=== PATIENT | male | born 1990 ===

== ENCOUNTER 2016-12-20 10:58 | Emergency (ER) | payer SELFPAY | END 2016-12-20 11:15 | disposition left against medical advice (07) | LOC: UCCORT 10:58 | DX: Z53.21 Procedure and treatment not carried out due to patient leaving prior to being seen by health care provider (principal) ==

== ENCOUNTER 2017-08-18 19:56 | Emergency (ER) | payer OTHER ==
--- NOTE | 2017-08-18 20:09 | UC ---
Skin Complaint HPI - HPI Summary HPI Summary: 26 YEAR OLD MALE PRESENTS LEFT CALF INSECT BITE. - History of Current Complaint Chief Complaint: UCSkin Time Seen by Provider: 08/18/17 20:06 Stated Complaint: SKIN COMPLAINT Hx Obtained From: Patient Onset/Duration: Sudden Onset Onset Severity: Moderate Current Severity: Moderate Pain Scale Used: 0-10 Numeric - 0 Location: Discrete Aggravating Factor(s): Nothing Alleviating Factor(s): Nothing Associated Signs & Symptoms: Positive: Negative - Allergy/Home Medications Allergies/Adverse Reactions: Allergies Allergy/AdvReac Type Severity Reaction Status Date / Time No Known Allergies Allergy Verified 08/18/17 20:01 Review of Systems Constitutional: Negative Skin: Negative Eyes: Negative ENT: Negative Respiratory: Negative Cardiovascular: Negative Gastrointestinal: Negative Genitourinary: Negative Motor: Negative Neurovascular: Negative Musculoskeletal: Negative Neurological: Negative Psychological: Negative All Other Systems Reviewed And Are Negative: Yes PMH/Surg Hx/FS Hx/Imm Hx Previously Healthy: Yes - Surgical History Surgical History: None - Family History Known Family History: Positive: Hypertension, Diabetes - Social History Alcohol Use: None Substance Use Type: None Smoking Status (MU): Former Smoker - Immunization History Most Recent Influenza Vaccination: none Physical Exam Triage Information Reviewed: Yes Vital Signs: Initial Vital Signs Temp 37.1 C 08/18/17 20:02 Pulse 70 08/18/17 20:02 Resp 16 08/18/17 20:02 BP 130/71 08/18/17 20:02 Pulse Ox 98 08/18/17 20:02 Vital Signs Reviewed: Yes Eye Exam: Normal ENT Exam: Normal Dental Exam: Normal Neck exam: Normal Neck: Positive: 1 Respiratory Exam: Normal Cardiovascular Exam: Normal Abdominal Exam: Normal Musculoskeletal Exam: Normal Neurological Exam: Normal Psychological Exam: Normal Skin: Positive: rashes Course/Dx - Diagnoses Provider Diagnoses: INSECT BITE ON BOTH ANKLES Discharge - Discharge Plan Condition: Stable Disposition: HOME Prescriptions: Cephalexin CAP* [Keflex 500 CAP*] 500 mg PO TID #30 cap Clotrimazole/Betamethasone* [Lotrisone Cream*] 1 applic TOPICAL BID PRN #90 gm PRN Reason: Itching Mupirocin 2% OINT* [Bactroban 2 % Oint*] 1 applic TOPICAL BID #2 tube Patient Education Materials: Insect Bite or Sting (ED), Jock Itch (ED) Forms: *Work Release Referrals: No Primary Care Phys,NOPCP [Primary Care Provider] -
[2017-08-18] MEDS ORDERED: Cephalexin CAP* 500 MG PO ONE (20:10)
[2017-08-18 20:46] VITALS: BP 130/71
--- NOTE | 2017-08-22 07:26 | UC ---
Progress - Progress Note Progress Note: WOUND CX (-). CAN STOP ABX.
== END 2017-08-18 20:39 | disposition home or self-care (01) ==
LOC: UCCORT 19:56
DX: S91.052A Open bite, left ankle, initial encounter (principal); W57.XXXA Bitten or stung by nonvenomous insect and other nonvenomous arthropods, initial encounter; Z87.891 Personal history of nicotine dependence
CPT/HCPCS: 87070; 87077; 87205; 99212; A9270-GY; G0463

== ENCOUNTER 2017-09-18 12:25 | Emergency (ER) | payer OTHER ==
[2017-09-18 12:40] VITALS: BP 122/66
[2017-09-18] MEDS ORDERED: Ketorolac INJ* 60 MG/2 ML VIAL IM ONE (12:55)
--- NOTE | 2017-09-18 13:17 | RAD ---
INDICATION: Back pain COMPARISON: None TECHNIQUE: Routine PA, lateral, and oblique imaging was performed . FINDINGS: Bones: There are no acute bony findings. There are no significant osteoarthritic findings. Alignment: Normal Disc spaces: The disc spaces are well-maintained Soft tissues: There are no soft tissue abnormalities. IMPRESSION: NEGATIVE EXAMINATION.
--- NOTE | 2017-09-18 13:39 | UC ---
Back Pain HPI - HPI Summary HPI Summary: AT 7AM WAS PUSHING CART WITH LUMBER IN IT, FELT PAIN IN LEFT SIDE OF LOWER BACK. HISTORY OF SIMILAR BACK INJURY 3 MONTHS AGO, RESOLVED ON ITS OWN. NO LOSS OF CONTROL OF BLADDER OR BOWELS. NO NUMBNESS OR TINGLING IN LEGS. NO ABDOMINAL PAIN. NO FEVER. - History of Current Complaint Chief Complaint: UCBackPain Stated Complaint: BACK PAIN Time Seen by Provider: 09/18/17 12:40 Hx Obtained From: Patient Onset/Duration: Sudden Onset, Lasting Hours Severity Initially: Moderate Severity Currently: Moderate Back Pain: Is Discrete @ - LEFT LOWER BACK Character: Aching, Spasmodic Aggravating Factor(s): Movement, Bending Alleviating Factor(s): Rest, Position Associated Signs And Symptoms: Negative: Numbness, Tingling, Abdominal Pain, Flank Pain, Bladder Incontinence, Bowel Incontinence, Weight Loss, Pain with Weight Bearing Related History: Similar Episode Dx As - 3 MONTHS AGO, Occupational Injury - Risk Factors AAA Risk Factors: Negative TAD Risk Factors: Negative Cauda Equina Risk Factors: Negative Epidural Abscess Risk Factors: Negative - Allergies/Home Medications Allergies/Adverse Reactions: Allergies Allergy/AdvReac Type Severity Reaction Status Date / Time No Known Allergies Allergy Verified 09/18/17 12:34 Home Medications: Home Medications Acetaminophen [Tylenol] 4 tab PO ONCE PRN 09/18/17 [History Confirmed 09/18/17] PMH/Surg Hx/FS Hx/Imm Hx Previously Healthy: Yes - Surgical History Surgical History: None - Family History Known Family History: Positive: Hypertension, Diabetes Negative: Renal Disease - Social History Occupation: Employed Full-time Lives: With Family Alcohol Use: Occasionally Substance Use Type: None Smoking Status (MU): Former Smoker Have You Smoked in the Last Year: Yes When Did the Patient Quit Smoking/Using Tobacco: few weeks ago - Immunization History Most Recent Influenza Vaccination: none Review of Systems Constitutional: Negative Skin: Negative Eyes: Negative ENT: Negative Respiratory: Negative Cardiovascular: Negative Gastrointestinal: Negative Genitourinary: Negative Motor: Negative Neurovascular: Negative Musculoskeletal: Arthralgia, Myalgia Neurological: Negative Psychological: Negative Is Patient Immunocompromised?: No All Other Systems Reviewed And Are Negative: Yes Physical Exam Triage Information Reviewed: Yes Appearance: Well-Appearing, No Pain Distress, Well-Nourished Vital Signs: Initial Vital Signs Temp 98.6 F 09/18/17 12:36 Pulse 65 09/18/17 12:36 Resp 18 09/18/17 12:36 BP 122/66 09/18/17 12:36 Vital Signs Reviewed: Yes Eye Exam: Normal ENT Exam: Normal Dental Exam: Normal Neck exam: Normal Neck: Positive: Supple, Nontender, No Lymphadenopathy Respiratory Exam: Normal Respiratory: Positive: Chest non-tender, Lungs clear, Normal breath sounds, No respiratory distress, No accessory muscle use Cardiovascular Exam: Normal Cardiovascular: Positive: RRR, No Murmur, Pulses Normal Abdominal Exam: Normal Abdomen Description: Positive: Nontender, No Organomegaly, Soft. Negative: CVA Tenderness (R), CVA Tenderness (L) Musculoskeletal: Positive: Strength Intact, ROM Intact, No Edema, Other: - PALPABLE SPASMS LEFT LOWER BACK PARASPINAL MUSCLES Neurological Exam: Normal Psychological Exam: Normal Skin Exam: Normal Back Pain Course/Dx - Differential Dx/Diagnosis Differential Diagnosis/HQI/PQRI: Strain, Sprain Provider Diagnoses: ACUTE LOW BACK STRAIN Discharge - Discharge Plan Condition: Stable Disposition: HOME Prescriptions: Cyclobenzaprine TAB* [Flexeril 10 MG TAB*] 10 mg PO TID PRN #15 tab PRN Reason: Spasms Ketorolac TAB * [Toradol TAB *] 10 mg PO Q8HR PRN #12 tab PRN Reason: Pain Patient Education Materials: Acute Low Back Pain (ED), Muscle Spasm (ED) Forms: *Work Release Referrals: [facility] [Outside] No Primary Care Phys,NOPCP [Primary Care Provider] - Additional Instructions: PHYSICAL THERAPY REFERRAL: You have been prescribed physical therapy. Treatments may include stretching, exercise, application of heat or cold, and other modalities. After an injury, PT can reduce swelling and pain. In recovery, PT is used to restore mobility and strength. Your specific treatment goals are: Reduction of Swelling (EGS, US, ice as needed) ___X__ Pain Reduction (EGS, US, ice as needed) ___X__ TENS Pack Fitting and Instruction Wound Hydrotherapy __X___ Preservation of Mobility __X___ Denominational of Mobility __X___ Strength Denominational ___X__ Work or Sports Hardening This instruction sheet also serves as your PHYSICAL THERAPY REFERRAL! Please take it with you to the therapist, so he/she will be aware of your diagnosis and treatment plan. You may see the physical therapist of your choice for these treatments, but may wish to check with your insurance to be sure the provider you select is covered. It's important to see the doctor to whom you have been referred for follow up.
== END 2017-09-18 13:49 | disposition home or self-care (01) ==
LOC: UCCORT 12:25
DX: S39.012A Strain of muscle, fascia and tendon of lower back, initial encounter (principal); X50.9XXA Other and unspecified overexertion or strenuous movements or postures, initial encounter; Y92.9 Unspecified place or not applicable; Z87.891 Personal history of nicotine dependence
CPT/HCPCS: 72100; 96372; 99212; G0463; J1885

== ENCOUNTER 2018-09-28 12:16 | Emergency (ER) | payer OTHER ==
--- OUTSIDE RECORDS SUMMARY | 2018-09-28 12:20 | XMS REPORT | Continuity of Care Document ---
:1990 External Reference #:[id number] Author Name Adan Combs, OD Address [address] [place] [address] Care Team Providers Name Role Phone Adan Combs OD Care Team Information Health Screener Unavailable Payers Type Date Identification Numbers Payment Provider Subscriber Onset: 2018 Policy Number: [id number] [employer] Group Number: [id number] 3 Dave THOMPSON PayID: [id number] [place] [address] Advance Directives Description No Information Available Problems Description No Information Family History Date Family Member(s) Problem(s) Comments Father No Current Problems Mother No Current Problems Social History Type Date Description Comments Sex Unknown ETOH Use Occasionally consumes alcohol Tobacco Use Start: Unknown Light tobacco smoker (10 or fewer cigarettes/day) Smoking Status Reviewed: 09/03/18 Light tobacco smoker (10 or fewer cigarettes/day) Allergies, Adverse Reactions, Alerts Description No Known Drug Allergies Medications Medication Date Status Form Strength Qnty SIG Indications Ordering Provider Artificial 09/03/ Active Solution 1.4% 15ml one drop Adan Tears 2018 qid OS Combs, OD Prednisolone 08/25/ Active Suspension 1% 5ml 1 drop Adan Acetate 2018 tid OS x Combs, OD 1 week Malcolm 128 08/25/ Active Ointment 5% 3.500g 1/4 inch Adan 2018 m ribbon Combs, OD onto ocular surface nightly left eye No Active Hx Unknown Medications 2018 - 2017 Immunizations Description No Information Available Vital Signs Description No Information Available Results Description No Information Available Procedures Date Code Description Status 08/29/2018 60199 Fitting Of Contact Lens For Treatment Of Ocular Surface Completed Disease 08/20/2018 20717 Remove Foreign Body Conjunctiva Superficial Completed 08/19/2018 86433 Eye Exam New Intermediate Completed 08/19/2018 78331 Remove Foreign Body Conjunctiva Superficial Completed Encounters Type Date Location Provider Dx Diagnosis Office Visit 09/03/2018 Main Office Adan Combs, OD S05.02xD Inj conjunctiva and 3:30p corneal abrasion w/o fb, left eye, subs Office Visit 09/01/2018 Main Office Adan Combs, OD S05.02xD Inj conjunctiva and 3:15p corneal abrasion w/o fb, left eye, subs Office Visit 08/29/2018 Main Office Adan Combs, OD S05.02xD Inj conjunctiva and 11:30a corneal abrasion w/o fb, left eye, subs Office Visit 08/27/2018 Main Office Adan Combs, OD S05.8x2D Other injuries of 11:15a left eye and orbit, subsequent encounter Office Visit 08/25/2018 Main Office Adan Garret, OD S05.8x2D Other injuries of 11:30a left eye and orbit, subsequent encounter Office Visit 08/20/2018 Main Office Adan Combs, OD T15.12xD Foreign body in 8:00a conjunctival sac, left eye, subs encntr S05.8x2D Other injuries of left eye and orbit, subsequent encounter Plan of Treatment Future Appointment(s):09/11/2018 3:15 pm - Adan Combs, OD at Main [id number] - Adan Combs, ODS05.02xD Injury of conjunctiva and corneal abrasion without foreign body, left eye, subsequent encounterFollow up:1 week f/u, sooner PRN
--- OUTSIDE RECORDS SUMMARY | 2018-09-28 12:20 | XMS REPORT | Continuity of Care Document ---
:1990 External Reference #:[id number] Author Name Adan Combs, OD Address [address] [place] [address] Care Team Providers Name Role Phone Adan Combs OD Care Team Information Field Hand Unavailable Payers Type Date Identification Numbers Payment Provider Subscriber Onset: 2018 Policy Number: [id number] [employer] Group Number: [id number] 3 Dave THOMPSON PayID: [id number] [place] [address] Advance Directives Description No Information Available Problems Description No Information Family History Date Family Member(s) Problem(s) Comments Father No Current Problems Mother No Current Problems Social History Type Date Description Comments Sex Unknown ETOH Use Occasionally consumes alcohol Tobacco Use Start: Unknown Light tobacco smoker (10 or fewer cigarettes/day) Smoking Status Reviewed: 09/22/18 Light tobacco smoker (10 or fewer cigarettes/day) Allergies, Adverse Reactions, Alerts Description No Known Drug Allergies Medications Medication Date Status Form Strength Qnty SIG Indications Ordering Provider Artificial 09/03/ Active Solution 1.4% 15ml one drop Adan Tears 2018 qid OS Combs, OD Prednisolone 08/25/ Hx Suspension 1% 5ml 1 drop Adan Acetate 2018 - tid OS x Combs, OD week 2018 Malcolm 128 08/25/ Hx Ointment 5% 3.500g 1/4 inch Adan 2018 - m ribbon Combs, OD 2018 ocular surface nightly left eye No Active 08/19/ Unknown Medications 2018 - 2017 Immunizations Description No Information Available Vital Signs Description No Information Available Results Description No Information Available Procedures Date Code Description Status 09/18/2018 95459 Fitting Of Contact Lens For Treatment Of Ocular Surface Completed Disease 08/29/2018 02268 Fitting Of Contact Lens For Treatment Of Ocular Surface Completed Disease 08/20/2018 10411 Remove Foreign Body Conjunctiva Superficial Completed 08/19/2018 63725 Eye Exam New Intermediate Completed 08/19/2018 37910 Remove Foreign Body Conjunctiva Superficial Completed Encounters Type Date Location Provider Dx Diagnosis Office Visit 09/22/2018 Main Office Adan Combs, OD H16.142 Punctate keratitis, 3:30p left eye Office Visit 09/18/2018 Main Office Adan Combs, OD H16.142 Punctate keratitis, 9:15a left eye Office Visit 09/03/2018 Main Office Adna Combs, OD S05.02xD Inj conjunctiva and 3:30p [...] encounter Office Visit 08/25/2018 Main Office Adan Combs, OD S05.8x2D Other injuries of 11:30a left eye and orbit, subsequent encounter Office Visit 08/20/2018 Main Office Adan Combs, OD T15.12xD Foreign body in 8:00a conjunctival sac, left eye, subs encntr S05.8x2D Other injuries of left eye and orbit, subsequent encounter Plan of Treatment Future Appointment(s):09/28/2018 11:15 am - Adan Combs, OD at Main [id number] - Adna Combs, ODH16.142 Punctate keratitis, left eyeFollow up:3-4 days f/u
--- OUTSIDE RECORDS SUMMARY | 2018-09-28 12:20 | XMS REPORT | Continuity of Care Document ---
:1990 External Reference #:[id number] Author Name Adan Combs, OD Address [address] [place] [address] Care Team Providers Name Role Phone Adan Combs OD Care Team Information Inspector Machined Parts Unavailable Payers Type Date Identification Numbers Payment Provider Subscriber Onset: 2018 Policy Number: [id number] [employer]an [employer] Group Number: [id number] 3 Dave THOMPSON PayID: [id number] [place] [address] Advance Directives Description No Information Available Problems Description No Information Family History Date Family Member(s) Problem(s) Comments Father No Current Problems Mother No Current Problems Social History Type Date Description Comments Sex Unknown ETOH Use Occasionally consumes alcohol Tobacco Use Start: Unknown Light tobacco smoker (10 or fewer cigarettes/day) Smoking Status Reviewed: 09/11/18 Light tobacco smoker (10 or fewer cigarettes/day) [...] Available Procedures Date Code Description Status 08/29/2018 46639 Fitting Of Contact Lens For Treatment Of Ocular Surface Completed Disease 08/20/2018 82751 Remove Foreign Body Conjunctiva Superficial Completed 08/19/2018 84967 Eye Exam New Intermediate Completed 08/19/2018 23100 Remove Foreign Body Conjunctiva Superficial Completed Encounters [...] and orbit, subsequent encounter Plan of Treatment No Information Available
--- OUTSIDE RECORDS SUMMARY | 2018-09-28 12:20 | XMS REPORT | Continuity of Care Document ---
:1990 External Reference #:[id number] Author Name Adan Combs, OD Address [address] [place] [address] Care Team Providers Name Role Phone Adan Combs OD Care Team Information Powerhouse Tender Unavailable Payers Type Date Identification Numbers Payment Provider Subscriber Onset: 2018 Policy Number: [id number] [employer] Roldan [employer] Group Number: [id number] 3 Dave THOMPSON PayID: [id number] [place] [address] Advance Directives Description No Information Available Problems Description No Information Family History Date Family Member(s) Problem(s) Comments Father No Current Problems Mother No Current Problems Social History Type Date Description Comments Sex Unknown ETOH Use Occasionally consumes alcohol Tobacco Use Start: Unknown Light tobacco smoker (10 or fewer cigarettes/day) Smoking Status Reviewed: 09/18/18 Light tobacco smoker (10 or fewer cigarettes/day) Allergies, Adverse Reactions, Alerts Description No Known Drug Allergies Medications Medication Date Status Form Strength Qnty SIG Indications Ordering Provider Artificial 09/03/ Active Solution 1.4% 15ml one drop Adan Tears 2018 qid OS Ocmbs, OD Malcolm 128 08/25/ Active Ointment 5% 3.500g 1/4 inch Adan 2018 m ribbon Combs, OD onto ocular surface nightly left eye Prednisolone 08/25/ Hx Suspension 1% 5ml 1 drop Adan Acetate 2018 - tid OS x Combs, OD week 2018 No Active Hx Unknown Medications 2018 - 2017 Immunizations Description No Information Available Vital Signs Description No Information Available Results Description No Information Available Procedures Date Code Description Status 09/18/2018 54332 Fitting Of Contact Lens For Treatment Of Ocular Surface Completed Disease 08/29/2018 39683 Fitting Of Contact Lens For Treatment Of Ocular Surface Completed Disease 08/20/2018 68262 Remove Foreign Body Conjunctiva Superficial Completed 08/19/2018 03862 Eye Exam New Intermediate Completed 08/19/2018 35952 Remove Foreign Body Conjunctiva Superficial Completed Encounters Type Date Location Provider Dx Diagnosis Office Visit 09/18/2018 Main Office Adan Combs, OD H16.142 Punctate keratitis, 9:15a left eye Office Visit 09/03/2018 Main Office Adan Combs, [...] orbit, subsequent encounter Plan of Treatment Future Appointment(s):09/22/2018 3:30 pm - Adan Combs, OD at Main [id number]/2017 - Adan Combs, ODH16.142 Punctate keratitis, left eyeFollow up:few days f/u
--- OUTSIDE RECORDS SUMMARY | 2018-09-28 12:21 | XMS REPORT | Continuity of Care Document ---
:1990 External Reference #:[id number] Author Name Adan Combs, OD Address [address] [place] [address] Care Team Providers Name Role Phone Adan Combs, SABINE Care Team Information Skein Winder Unavailable Payers Type Date Identification Numbers Payment Provider Subscriber Onset: 2018 Policy Number: [id number] [employer]an [employer] Group Number: [id number] 3 Dave THOMPSON PayID: [id number] [place] [address] Advance Directives Description No Information Available Problems Description No Information Family History Date Family Member(s) Problem(s) Comments Father No Current Problems Mother No Current Problems Social History Type Date Description Comments Sex Unknown ETOH Use Occasionally consumes alcohol Tobacco Use Start: Unknown Light tobacco smoker (10 or fewer cigarettes/day) Smoking Status Reviewed: 09/01/18 Light tobacco smoker (10 or fewer cigarettes/day) Allergies, Adverse Reactions, Alerts Description No Known Drug Allergies Medications Medication Date Status Form Strength Qnty SIG Indications Ordering Provider Prednisolone 08/25/ Active Suspension 1% 5ml 1 drop Adan Acetate 2018 tid OS x Combs, OD 1 week Malcolm 128 08/25/ Active Ointment 5% 3.500g 1/4 inch Adan 2018 m ribbon Garret, OD onto ocular surface nightly left eye No Active 08/19/ Hx Unknown Medications 2018 - 2017 Immunizations Description No Information Available Vital Signs Description No Information Available Results Description No Information Available Procedures Date Code Description Status 08/29/2018 36699 Fitting Of Contact Lens For Treatment Of Ocular Surface Completed Disease 08/20/2018 02621 Remove Foreign Body Conjunctiva Superficial Completed 08/19/2018 46302 Eye Exam New Intermediate Completed 08/19/2018 62217 Remove Foreign Body Conjunctiva Superficial Completed Encounters Type Date Location Provider Dx Diagnosis Office Visit 08/29/2018 Main Office Adan Combs, [...] orbit, subsequent encounter Plan of Treatment Future Appointment(s):09/03/2018 3:30 pm - Adan Combs, OD at Main Office
--- OUTSIDE RECORDS SUMMARY | 2018-09-28 12:21 | XMS REPORT | Continuity of Care Document ---
:1990 External Reference #:[id number] Author Name Simin Summers Care Team Providers Name Role Phone Adan Combs OD Care Team Information Dietary Aide Cook Unavailable Payers Type Date Identification Numbers Payment Provider Subscriber Onset: 2018 Policy Number: [id number] [employer] Group Number: [id number] [address]erie [address] DR PayID: [id number] [place] [id number] Advance Directives Description No Information Available Problems Description No Information Family History Date Family Member(s) Problem(s) Comments Father No Current Problems Mother No Current Problems Social History Type Date Description Comments Sex Unknown ETOH Use Occasionally consumes alcohol Tobacco Use Start: Unknown Light tobacco smoker (10 or fewer cigarettes/day) Smoking Status Reviewed: 08/29/18 Light tobacco smoker (10 or fewer cigarettes/day) [...] Available Procedures Date Code Description Status 08/29/2018 04470 Fitting Of Contact Lens For Treatment Of Ocular Surface Completed Disease 08/20/2018 24887 Remove Foreign Body Conjunctiva Superficial Completed 08/19/2018 36733 Eye Exam New Intermediate Completed 08/19/2018 61209 Remove Foreign Body Conjunctiva Superficial Completed Encounters [...] orbit, subsequent encounter Plan of Treatment Future Appointment(s):09/01/2018 3:15 pm - Adan Combs, OD at Main [id number] - Adan Combs, ODS05.02xD Injury of conjunctiva and corneal abrasion without foreign bFollow up:2 days f/u
--- OUTSIDE RECORDS SUMMARY | 2018-09-28 12:21 | XMS REPORT | Continuity of Care Document ---
:1990 External Reference #:[id number] Author Name Carmencita Hobson Care Team Providers Name Role Phone Adan Combs OD Care Team Information Grain Unloader Unavailable Payers Type Date Identification Numbers Payment Provider Subscriber Onset: 2018 Policy Number: [id number] [employer] Group Number: [id number] Valerie [address] PayID: [id number] [place] [address] Advance Directives Description No Information Available Problems [...] Available Procedures Date Code Description Status 08/29/2018 33967 Fitting Of Contact Lens For Treatment Of Ocular Surface Completed Disease 08/20/2018 28658 Remove Foreign Body Conjunctiva Superficial Completed 08/19/2018 72318 Eye Exam New Intermediate Completed 08/19/2018 18170 Remove Foreign Body Conjunctiva Superficial Completed Encounters [...] and orbit, subsequent encounter Plan of Treatment 08/19/2018 - Adanmarcia Combs, ODS05.8x2D Other injuries of left eye and orbit, subsequent encounterFollow up:1 day f/uS05.8x2D Other injuries of left eye and orbit, subsequent encounterFollow up:1 day f/uT15.12xA Foreign body in conjunctival sac, left eye, init encntrFollow up:1 day f/uT15.12xD Foreign body in conjunctival sac, left eye, subs encntrFollow up:1 day f/u
[2018-09-28 12:39] VITALS: BP 123/54
--- NOTE | 2018-09-28 13:19 | UC ---
Skin Complaint HPI - HPI Summary HPI Summary: Patient presents with an unremarkable past medical history. He presents with complaints of reoccurring itchy rash in his groin. He states his had the rash first. He denies any vesicles, painful lesions. He denies any dysuria or penile discharge. - History of Current Complaint Chief Complaint: UCRash Time Seen by Provider: 09/28/18 13:04 Stated Complaint: RASH Hx Obtained From: Patient Onset/Duration: Gradual Onset Skin Exposure Onset/Duration: Weeks Ago Timing: Intermittent Episodes Lasting: Current Severity: Mild Pain Intensity: 3 Location: Discrete - groin folds. Aggravating Factor(s): Touch Associated Signs & Symptoms: Positive: Negative - Allergy/Home Medications Allergies/Adverse Reactions: Allergies Allergy/AdvReac Type Severity Reaction Status Date / Time No Known Allergies Allergy Verified 09/28/18 12:39 Review of Systems All Other Systems Reviewed And Are Negative: Yes Constitutional: Positive: Negative Skin: Positive: Rash Eyes: Positive: Negative ENT: Positive: Negative Respiratory: Positive: Negative Cardiovascular: Positive: Negative Gastrointestinal: Positive: Negative Genitourinary: Positive: Negative Motor: Positive: Negative Neurovascular: Positive: Negative Musculoskeletal: Positive: Negative Neurological: Positive: Negative Psychological: Positive: Negative PMH/Surg Hx/FS Hx/Imm Hx - Surgical History Surgical History: None - Family History Known Family History: Positive: Hypertension, Diabetes Negative: Renal Disease - Social History Alcohol Use: Daily Substance Use Type: None Smoking Status (MU): Former Smoker Have You Smoked in the Last Year: Yes When Did the Patient Quit Smoking/Using Tobacco: few weeks ago - Immunization History Most Recent Influenza Vaccination: none Physical Exam Triage Information Reviewed: Yes Appearance: Well-Appearing Vital Signs: Initial Vital Signs Temp 97.6 F 09/28/18 12:35 Pulse 62 09/28/18 12:35 Resp 18 09/28/18 12:35 BP 123/54 09/28/18 12:35 Pulse Ox 100 09/28/18 12:35 Vital Signs Reviewed: Yes Eye Exam: Normal ENT Exam: Normal Neck exam: Normal Neck: Positive: 1 Respiratory Exam: Normal Cardiovascular Exam: Normal Musculoskeletal Exam: Normal Neurological Exam: Normal Psychological Exam: Normal Skin: Positive: Rashes - mild erythema noted of groin folds. appears moist, and mildly inflammed, no vesicles noted. Course/Dx - Course Course Of Treatment: Patient presents with yeast infection of groin folds, treated with nystatin gcrea tid x 7 days. If symtpoms persist to follow up with PCP or return to clinic. - Differential Diagnoses - Skin Complaint Differential Diagnoses: Other - cutaneous candidiasis - Diagnoses Provider Diagnoses: cutaneous candidiasis Discharge - Sign-Out/Discharge Documenting (check all that apply): Patient Departure All imaging exams completed and their final reports reviewed: No Studies - Discharge Plan Condition: Stable Disposition: HOME Prescriptions: Nystatin CREAM* [Nystatin Cream*] 1 applic TOPICAL TID #1 tube Patient Education Materials: Yeast Infection (ED) Referrals: No Primary Care Phys,NOPCP [Primary Care Provider] - - Billing Disposition and Condition Condition: STABLE Disposition: Home - Attestation Statements Scribe Documentation Reviewed: No Provider Attestation: Per institutional requirements, I have reviewed the chart, however, I was not consulted specifically or made aware of this patient by the midlevel provider. I did not personally evaluate, interact with , or disposition this patient.
== END 2018-09-28 13:25 | disposition home or self-care (01) ==
LOC: UCEAST 12:16
DX: B37.2 Candidiasis of skin and nail (principal); Z87.891 Personal history of nicotine dependence
CPT/HCPCS: 99212; G0463